=== PATIENT | female | born 1995 | race Caucasian/White ===

== ENCOUNTER 2019-10-28 03:02 | Emergency (ER) | payer MEDICAID ==
[~2019-10-28] VITALS: Ht 154.9 cm; Wt 99.8 kg
[2019-10-28 03:06] VITALS: Ht 154.9 cm; Wt 99.8 kg
[2019-10-28 05:19] VITALS: BP 134/85
== END 2019-10-28 05:19 | disposition home or self-care (01) ==
LOC: ED 03:02
DX: J40 Bronchitis, not specified as acute or chronic (principal)
CPT/HCPCS: J7512; J7613; J7644